=== PATIENT | female | born 1955 | race Caucasian/White ===

== ENCOUNTER 2024-11-08 11:16 | Emergency (ER) | payer OTHER, SELFPAY ==
--- NOTE | ~2024-11-08 | CT_ITS ---
CLINICAL INDICATION: Left flank pain COMPARISON: None. TECHNIQUE: Multiple contiguous axial images of the abdomen and pelvis were performed without the admi nistration of intravenous contrast The dose-length product (DLP) was 280.98 mGy-cm. Automated exposure control and iterative reconstruction technique were employed. FINDINGS/OBSERVATIONS: Visualized lower thorax: 6 mm solid nodule within the left lung base (axial series, image 3) The remainder of the bilateral lung bases are clear The heart is of normal size, without pericardial effusion. Small hiatal hernia is present. Liver: The liver demonstrates homogeneous attenuation and is not enlarged. Gallbladder and biliary system: The gallbladder is surgically absent Pancreas: Limited evaluation of the pancreas secondary to the lack of intravenous contrast. Spleen: The spleen demonstrates homogeneous attenuation and is not enlarged. Kidneys: The bilateral kidneys are unremarkable, without hydronephrosis or renal calculi. Adrenal glands: Unremarkable. Gastrointestinal tract: Diverticulosis is identified within the descending colon with mural thickening and surrounding inflam matory change, findings consistent with acute/early diverticulitis. No gross perforation is identified. No drainable fluid collection is noted. Appendix: The air-filled appendix is of normal caliber (axial series, images 104 through 113) Vasculature: Trace calcified atherosclerotic disease. Lymph nodes: Limited evaluation without intravenous contrast. Pelvic structures: The bladder is decompressed, and otherwise unremarkable. The uterus is anteverted and anteflexed, and otherwise unremarkable. Body wall and musculoskeletal: Small fat-containing umbilical hernia. Heterogeneous appearance of the bone marrow is identified, with significant degenerative disease demo nstrating disc space narrowing, osteophyte formation and vacuum phenomena. IMPRESSION: Findings consistent with acute/early diverticulitis of the descending colon without a drainable fluid collection or gross perforation. Reviewed, dictated and finalized at location A. IMPRESSION: Findings consistent with acute/early diverticulitis of the descending colon wit hout a drainable fluid collection or gross perforation.
[2024-11-08 11:34] VITALS: BP 123/82; PULSE 101; RESP 16; O2SAT 99
[2024-11-08 11:37] VITALS: TEMP 36.8
--- NOTE | 2024-11-08 14:22 | ED_ITS ---
HPI - Abdominal Pain General Chief Complaint: Abdominal Pain Stated Complaint: LLQ abd. pain x3 days Time Seen by Provider: 11/08/24 14:00 Source: patient Mode of arrival: ambulatory Limitations: no limitations History of Present Illness HPI narrative: Patient is a 69 y/o female, with PMH of PMR, who presents to the ED with c/o L flank pain. Patient reports having constant stabbing pain for the 3 days. No significant radiation of pain to abdomen. No history of similar pain. Denies history of kidney stones. Does have history of diverticulosis. Also reports chills last night, urinary frequency for the past few days, diarrhea. Denies dysuria or hematuria. Denies fevers. Denies N/V, rectal bleeding, melena. Related Data Allergies Allergy/AdvReac Type Severity Reaction Status Date / Time erythromycin base Allergy Nausea and Verified 11/08/24 11:37 Vomiting Review of Systems 2 Review of Systems: All systems reviewed & are unremarkable except as noted in HPI. All systems reviewed & are unremarkable except as noted in HPI and below Exam 2 Narrative: GENERAL: Well appearing, well-nourished, non-toxic, in no acute distress. HEAD: Normocephalic, atraumatic. RESPIRATORY: Airway patent, respirations nonlabored. Clear to auscultation bilaterally, no rales, rhonchi, wheezing. CARDIOVASCULAR: Regular rate and rhythm without murmurs, rubs, or gallops. ABDOMINAL: Soft, mild tenderness palpation in left lower quadrant, left mid/lateral abdomen, nondistended. Normoactive BS. MUSCULOSKELETAL: Moves all extremities. No gross deformities. SKIN: Warm, dry, normal color. NEURO: A&O X3. Speech clear. PSYCHIATRIC: Appropriate mood and affect. Normal interaction. Course Vital Signs Vital signs: Vital Signs Pulse Rate 101 H 11/08/24 11:34 Respiratory Rate 16 11/08/24 11:34 Blood Pressure 123/82 11/08/24 11:34 Pulse Oximetry 99 11/08/24 11:34 Temperature 98.3 F 11/08/24 11:37 Pulse Rate 101 H 11/08/24 11:34 Respiratory Rate 16 11/08/24 11:34 Blood Pressure 123/82 11/08/24 11:34 Pulse Oximetry 99 11/08/24 11:34 MDM - Abdominal Pain MDM Narrative Medical decision making narrative: Patient presented to ED with 3 day history of left flank pain. Also reporting urinary frequency, diarrhea. Vital signs are stable upon arrival. Patient afebrile. In no acute distress. Cbc with blood cell count of 12.0. CMP fairly unremarkable. Minimal transaminitis. UA with trace amount of RBC. No signs of infection. CT scan of abdomen/pelvis was obtained: IMPRESSION: Findings consistent with acute/early diverticulitis of the descending colon without a drainable fluid collection or gross perforation. Discussed lab and imaging findings with patient. Feel she is safe for discharge home on oral antibiotics for diverticulitis. Will also send short course of pain medication to pharmacy. Discussed diverticulitis diet. Discussed strict return precautions. Patient in agreement with plan. Feels comfortable discharge home. Discharged in stable condition. Differential Diagnosis Differential diagnosis: Likely abdominal pain, calculus of kidney, constipation, diverticulitis, gastroenteritis and small bowel obstruction Medical Records Attestation: I reviewed the patient's medical records. Lab Data Attestation: I reviewed the patient's lab results. 11/08/24 14:06 11/08/24 14:06 Labs: Lab Results 11/08/24 11/08/24 Range/Units 14:06 14:30 WBC 12.0 H (4.5-10.0) K/mm3 RBC 4.73 (4.2-5.4) M/mm3 Hgb 13.9 (12.0-15.0) g/dL Hct 42.8 (37.0-47.0) % MCV 90.5 (80-100) fl MCH 29.4 (26-34) pg MCHC 32.5 (32-36) g/dl RDW 12.8 (11.5-14.5) % Plt Count 343 (150-375) k/mm3 MPV 8.9 (7.4-10.4) fl Immature Gran % (Auto) 0.4 (0-0.5) % Neut % (Auto) 70.5 (45.5-73.1) % Lymph % (Auto) 17.6 L (18.3-44.2) % [place] % (Auto) 10.5 H (2.6-8.5) % Eos % (Auto) 0.6 (0-4.4) % Baso % (Auto) 0.4 (0.2-1.2) % Lymph # (Auto) 2.12 (0.9-3.2) K/mm3 [place] # (Auto) 1.3 H (0.1-0.6) K/mm3 Eos # (Auto) 0.1 (0-0.3) K/mm3 Baso # (Auto) 0.1 (0.0-0.1) K/mm3 Abs Immat Gran (auto) 0.05 H (0.00-0.031) K/mm3 Absolute Neuts (auto) 8.5 H (1.3-6.7) K/mm3 Absolute Nucleated RBC 0.000 (0.0-0.012) K/mm3 Nucleated RBC % 0.0 (0.0-0.2) % Sodium 136 L (137-145) mmol/L Potassium 4.1 (3.4-5.0) mmol/L Chloride 102 (98-107) mmol/L Carbon Dioxide 23 (22-30) mmol/L Anion Gap 11 (4-12) mmol/L BUN 13 (7-17) mg/dL Creatinine 0.68 L (0.7-1.0) mg/dL Estim Creat Clear Calc 67 ml/min Estimated GFR > 60 (59 - ) Glucose 103 (65-110) mg/dL Lactic Acid 1.1 (0.7-2.0) mmol/L Calcium 9.8 (8.4-10.2) mg/dL Total Bilirubin 0.7 (0.2-1.3) mg/dL AST 39 H (14-36) U/L ALT 47 H (6-35) U/L Alkaline Phosphatase 91 (38-126) U/L Total Protein 8.5 H (6.3-8.2) g/dL Albumin 4.6 (3.5-5.1) g/dL Lipase 58 (23-300) U/L Urine Color Yellow (Yellow) Urine Appearance Clear (Clear) Urine pH 6.0 (5.0-9.0) Ur Specific [place] 1.022 (1.001-1.035) Urine Protein Trace (Negative) mg/dL Urine Glucose (UA) Negative (Negative) mg/dL Urine Ketones Negative (Negative) mg/dL Ur Blood (Man) Negative (Negative) Urine Nitrate Negative (Negative) Urine Bilirubin Negative (Negative) Urine Urobilinogen 1.0 (<2.0) mg/dL Leukocyte Esterase Rfl Trace H (Negative) JAJA/UL Urine RBC 3-5 H (0-2) /hpf Urine WBC 0-5 (0-3) /hpf Ur Squamous Epith Cells None seen (Few) /hpf Urine Bacteria None seen /hpf Urine Casts 0-2 Imaging Data Attestation: I personally reviewed and interpreted this imaging study as follows: Radiologist's impression: ITS Impressions Abdomen/Pelvis CT 11/08/24 15:20 IMPRESSION: Findings consistent with acute/early diverticulitis of the descending colon without a drainable fluid collection or gross perforation. Discharge Plan Discharge Clinical Impression: Diverticulitis of descending colon Patient Disposition: Home Condition: Stable Instructions: Antibiotic Form, Diverticulitis (ED), High Fiber Diet (ED), Diverticulitis Diet (ED) Additional Instructions: Take both antibiotics as prescribed. It is important you finish both courses. Do not drink alcohol while taking Flagyl. Continue Tylenol as needed for pain. Pateros as needed for more severe pain. Recommend low fiber diet while on antibiotics, then increasing fiber supplementation. Follow-up with your primary care doctor for further evaluation. Return to the ED if you experience worsening or severe pain, fevers, unable to keep down food or drink, rectal bleeding, dark black stools, or any other symptoms of concern. Patient Language: Ukrainian Prescriptions: New metronidazole 500 mg tablet 500 mg PO Q8H 7 Days Qty: 21 0RF ciprofloxacin HCl 500 mg tablet 500 mg PO Q12H 7 Days Qty: 14 0RF hydrocodone-acetaminophen 5-325 mg tablet 1 tablet PO Q6H PRN (Reason: pain) Qty: 10 0RF Follow-up/Referrals: PHYSICIAN NOT ON STAFF,NONSTAFF [Non-Staff] - Time of Disposition: 16:12
[2024-11-08 14:27] LABS: Hematocrit 42.8 % (37.0-47.0); Hemoglobin 13.9 g/dL (12.0-15.0); Immature Granulocyte Percent A 0.4 % (0-0.5); Lymphocytes Absolute Auto 2.12 K/mm3 (0.9-3.2); Mean Corpuscular HGB Conc 32.5 g/dl (32-36); Mean Corpuscular Hemoglobin 29.4 pg (26-34); Mean Corpuscular Volume 90.5 fl (80-100); Nucleated Red Blood Cells Absolute Auto 0.000 K/mm3 (0.0-0.012); Nucleated Red Blood Cells Perc 0.0 % (0.0-0.2); Platelet Count Result 343 k/mm3 (150-375); Red Blood Count 4.73 M/mm3 (4.2-5.4); White Blood Count 12.0 K/mm3 (4.5-10.0)
[2024-11-08] MEDS: ACETAMINOPHEN 500 MG TABLET 1000 MG PO (14:28)
[2024-11-08 14:38] LABS: Alanine Aminotransferase 47 U/L (6-35); Albumin Level 4.6 g/dL (3.5-5.1); Alkaline Phosphatase 91 U/L (38-126); Anion Gap 11 mmol/L (4-12); Aspartate Amino Transferase 39 U/L (14-36); Bilirubin,Total 0.7 mg/dL (0.2-1.3); Blood Urea Nitrogen 13 mg/dL (7-17); Calcium 9.8 mg/dL (8.4-10.2); Carbon Dioxide 23 mmol/L (22-30); Chloride 102 mmol/L (98-107); Estimated CRCL calculation 67 ml/min; Estimated Glomerular Filt Rate > 60; Glucose 103 mg/dL (65-110); Lipase 58 U/L (23-300); Potassium 4.1 mmol/L (3.4-5.0); Sodium 136 mmol/L (137-145); Total Protein 8.5 g/dL (6.3-8.2)
--- OUTSIDE RECORDS SUMMARY | 2024-11-08 14:47 | XMS_ITS | Clinical Summary ---
Author Organization [facility] Address [facility] [place] [address] Care Team Providers Care Mentally Impaired Teacher Name Role Phone Pop Chase MD Primary Care Provi cheyanne Carmelita Frazier MD Unavailable [phone] Allergies Active Allergy Reactions Criticality Noted Date Comments Erythromycin Other Nausea only Low 01/01/2022 Narcotic Pain Meds Medications ibuprofen (ADVIL,MOTRIN) 600 mg tablet Take 1 tablet (600 mg total) by mouth every 6 (six) hours as needed for pain (pain) 30 tablet 2 Active venlafaxine XR (EFFEXOR-XR) 75 mg 24 hr capsule TAKE ONE CAPSULES BY MOUTH EVERY DAY 100 capsule 5 Active venlafaxine XR (EFFEXOR-XR) 75 mg 24 hr capsule TAKE 1 CAPSULE BY MOUTH DAILY WITH FOOD 90 capsule 1 5 025 Discontinued Active Problems Problem Noted Date Diagnosed Date Myalgia 11/27/2022 Assessment & Plan (07/05/2024 9:50 AM TORCH HEATER): PMR. Did not tolerate prednisone. Will investigate alternatives such as Actemra. Assessment & Plan (06/03/2024 10:21 AM TORCH HEATER): September 2023 reported notable pain at B shoulders and hips worse overnight and into the morning. She described symptoms suspicious for PMR, however throughout this time she has not had reproducible UE/LE ttp on exam and her inflammatory markers were normal. She was given a course of prednisone and reported ~80% benefit. At last visit noted that throughout the time she had taken prednisone she has had some residual discomfort in her proximal LE in the morning which did not worsened with dose reductions. At last visit, due to ongoing weight gain with prednisone, she was very eager to taper off as soon as possible. She has now been off prednisone for ~1.5 weeks. She does report an increase in pain, though states that it is quite diffuse throughout her body. Today she has ttp isolated to the area of the L greater trochanter. Discussed that there have been inconsistencies with a PMR diagnosis from the beginning; today her description of widespread pain is also inconsistent with PMR. She is certainly averse to consider steroids and, as at last visit, declined a steroid sparing agent such as mtx or Actemra. Suggested that we could try something like gabapentin, though this too she declines. At present she would like to focus on routine low impact exercise such as yoga and dietary change with the goal of weight loss. Discussed plan to have her follow up should symptoms progress or if she decides she would like to pursue additional treatment. Assessment & Plan (04/05/2024 3:10 PM TORCH HEATER): September 2023 reported notable pain at B shoulders and hips worse overnight and into the morning. Was struggling to stand from bed to walk to the bathroom overnight and to raise her arms overhead in the morning. Thus she described symptoms suspicious for PMR, however throughout this time she has not had reproducible UE/LE ttp on exam and her inflammatory markers were normal. She was given a course of prednisone and reported ~80% benefit. She has since been tapering by 1 mg per month and is now down to 6 mg daily; she explains today that throughout the time she has taken prednisone she has had some residual discomfort in her proximal LE in the morning which has not worsened with dose reductions. At this time due to ongoing weight gain with prednisone she is very eager to get off this as soon as possible; this has become her number one priority, stating that she can live with the LE discomfort. Discussed that overall there have been features suggesting PMR but there have also been inconsistencies with this diagnosis. Reviewed that we could consider a steroid sparing agent such as mtx or Actemra should we find worsening with prednisone tapering. At this time will decrease prednisone by 1 mg every 1-2 weeks until off. Plan for follow up in 2 months to reevaluate or sooner as needed. Assessment & Plan (12/07/2023 2:41 PM CDT): At last visit in September reported notable pain at B shoulders and hips which is worse overnight and into the morning. Was struggling to stand from bed to walk to the bathroom overnight and to raise her arms overhead in the morning. Thus some of what she describes sounds suspicious for PMR, though she did not have significant reproducible UE/LE ttp on exam and her inflammatory markers were normal. She was given a course of prednisone and reported profound benefit, tapered from 15 mg daily to 10 mg daily and has remained on this dose since. She had been scheduled to follow up last month but she cancelled this appt. Overall remains stable today without symptoms or exam findings suggestive of PMR. Reviewed need to begin to taper prednisone, particularly due to the risks of long-term steroid use, she is eager to try. Will begin to taper by 1 mg per month starting on 12/09. She will call if she experiences a flare with dose reduction. Recheck labs today as below. Plan for follow up in 3-4 months to reevaluate or sooner as needed. Assessment & Plan (09/15/2023 3:04 PM CDT): Returns today due to worsening of pain over the last 2-3 weeks. While she reports diffuse pain affecting joints more than muscles, she does report notable pain at B shoulders and hips which is worse overnight and into the morning. Finds that she struggles to stand from bed to walk to the bathroom overnight and to raise her arms overhead in the morning. Thus some of what she describes sounds suspicious for PMR, though she does not have significant reproducible UE/LE ttp on exam. Her prior workup has been unremarkable for inflammatory arthritis. At this time recommend rechecking labs as below and trial prednisone 15 mg daily x7d. If she has a dramatic benefit (at least 90%) then will treat with prednisone taper for PMR. Due to difficulty getting out of her car and walking, handicap parking given. Plan for follow up in 6 weeks and she will call with update after the course of prednisone. Assessment & Plan (06/15/2023 10:21 AM TORCH HEATER): As above Assessment & Plan (11/27/2022 3:26 PM CDT): For her low back and hip pain, recommend a trial of aquatic exercises and monitor response. 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 Hand xrays were negative and a R hand/wrist US did not show significant active inflammation. Returns today largely unchanged from prior, she describes a sensation of widespread body pain and stiffness. Today notes that she believes her symptoms stem more from her muscles than from her joints. Her exam reveals a few tender joints and tender points, no synovitis. Overall there has not been evidence to substantiate any active rheumatologic diagnosis. Given her benefit with Aleve, would continue this and monitor. Will recheck labs today as below. Plan for follow up in 6 months to reassess or sooner as needed. Assessment & Plan (12/15/2022 10:58 AM CDT): 67yoF presents for evaluation due to joint/muscle pain and ARMANDO 1:320. Her symptoms began 4 months ago. Her greatest complains have been her L hip, low back, and hands with stiffness that is persistent throughout the day. A course of prednisone offered modest benefit, she otherwise has tried only 200 mg ibuprofen on one occasion. 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 +FH of RA. Our workup shows an isolated ARMANDO but with a high titer of 1:1280, her HLA B27 was negative. 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 Hand xrays were negative and a R hand/wrist US did not show significant active inflammation. Overall there is not evidence at this time to substantiate any active rheumatologic diagnosis. Given her benefit with Aleve, would continue this and monitor. Plan for follow up in 6 months to reassess or sooner as needed. Assessment & Plan (11/27/2022 10:20 AM CDT): 67yoF presents for evaluation due to joint/muscle pain and ARMANDO 1:320. Her symptoms began 4 months ago. Her greatest complains have been her L hip, low back, and hands with stiffness that is persistent throughout the day. A course of prednisone offered modest benefit, she otherwise has tried only 200 mg ibuprofen on one occasion. 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 +FH of RA. By exam today she has a few tender PIP joints in her hands with questionable synovitis. Overall there are some features in her history, exam, and/or prior workup that do suggest possible underlying rheumatologic diagnosis. To further evaluate will check labs and imaging as below with plan for follow up in 2 weeks to review results or sooner as needed. Pain of pelvic girdle 10/09/2022 Assessment & Plan (10/09/2022 7:45 AM CDT): Labs to r/o or rule in PMR Start prednisone 20 mg daily Depressive disorder 10/08/2022 10/08/2022 Elevated liver enzymes 10/08/2022 3 Establishing care with new doctor, encounter for 01/01/2022 Routine general medical exam ination at a health care facility 04/22/2019 Assessment & Plan (07/05/2024 9:45 AM TORCH HEATER): Health maintenance objectives reviewed in orders placed for any outstanding screening if indicated. Physical exam performed as above. Assessment & Plan (06/09/2023 9:28 AM TORCH HEATER): Health maintenance objectives reviewed in orders placed for any outstanding screening if indicated. Physical exam performed as above. Pure hypercholesterolemia 03/26/2018 Overview (03/26/2018): Due to overweight Assessment & Plan (01/01/2022 2:43 PM CDT): TC: HDL 3.3 10/2021. ASCVD: 5.4% No statin medication indicated Continue lifestyle optimization. She has made significant progress with weight loss over the past year. Assessment & Plan (03/26/2018 9:32 AM TORCH HEATER): Lipid abnormalities are worsening. Nutritional counseling was provided. Lipids will be reassessed in 3 months. Class 1 obesity due to exces s calories without serious comorbidity with body mass index (BMI) of 30.0 to 30.9 in adult 03/26/2018 Overview (03/26/2018): Is suffering HLD as a consequence Assessment & Plan (07/01/2024 3:54 PM TORCH HEATER): BMI Follow-up includes: nutrition counseling, exercise counseling, and education provided. Assessment & Plan (06/09/2023 9:26 AM TORCH HEATER): BMI Follow-up includes: nutrition counseling, exercise counseling, and education provided. Assessment & Plan (10/08/2022 3:53 PM CDT): BMI Follow-up includes: nutrition counseling, exercise counseling and education provided. Assessment & Plan (01/01/2022 2:20 PM CDT): BMI Follow-up includes: nutrition counseling, exercise counseling and education provided. Assessment & Plan (03/26/2018 9:35 AM TORCH HEATER): Obesity is worsening. Discussed the patient's BMI. The BMI is above average; BMI management plan is completed. We discussed the saxenda and with other risks it is indicated Return for weight every 6 weeks to ensure effective weight loss Anxiety disorder 01/07/2016 Assessment & Plan (01/01/2022 2:47 PM CDT): Debilitating anxiety ensued after the untimely passing of her son 7 years ago. She has been on venlafaxine since that time. 2 years ago, she discontinued this medication but was meet with significant emotional distress. Stephany would like to get off of this medication. We discussed that with her previous experience this is not advisable. She expressed understanding. Will increase back to 75mg and continue uninterrupted. Resolved Problems Problem Noted Date Diagnosed Date Resolved Date Acute left-sided low back pa in without sciatica 06/01/2020 10/21/2021 Assessment & Plan (06/01/2020 4:57 PM TORCH HEATER): Get film Medrol dose pack PT Right anterior knee pain 03/26/2018 Assessment & Plan (07/08/2018 3:11 PM TORCH HEATER): I am recommendeing a course of PT and if no better or worse to see ortho the knee exam is very benign Assessment & Plan (03/26/2018 9:36 AM TORCH HEATER): xray Encounters Date Type Department Care Team Description 11/08/2024 Nurse Triage [facility] [address] [place] [address] [place] [phone] Pop Chase MD from Last 3 Months Immunizations Immunization Administration Dates Next Due Influenza, Quad, Adjuvantate d, Intramuscular 04/04/2023,03/03/2022,02/15/2020 Influenza, Quadrivalent, Hig h Dose, Preservative Free, Intrr 03/01/2021 Influenza, Quadrivalent, Spl it, Intramuscular 02/08/2018 Influenza, Trivalent, Adjuva nted, Intramuscular 03/10/2019 Influenza, Trivalent, High D ose, Split, Preservative Free, Intramuscular 03/02/2017 Influenza, Unspecified 02/09/2024 Abiola (J&J) SARS-CoV-2 Vaccination 11/08/2020 Pneumococcal Conjugate PCV 13 04/22/2019 Pneumococcal Polysaccharide PPV23 10/22/2021 Sars-CoV-2, Unspecified 07/05/2024(Deferred: Pat ient Refused) Tdap 05/12/2020 ZOSTER Recombinant 07/05/2024(Deferred: Patient Refused) Surgical History Surgery Date Site/Laterality Comments CHOLECYSTECTOMY 05/11/2020 - 05/10/2021 SECTION 1975,1976,1986 Medical History Medical History Date Comments Acute left-sided low back pain without sciatica 06/01/2020 Right anterior knee pain 03/26/2018 Anxiety disorder 01/07/2016 Depression Hypercholesterolemia Family History Medical History Relation Name Comments No Known Problems Brother Lung cancer Father No Known Problems Maternal Grandfather No Known Problems Maternal Grandmother No Known Problems Mother no known h ealth issues No Known Problems Paternal Grandfather No Known Problems Paternal Grandmother No Known Problems Sister Suicidality Son Family history of suicide - (Added by TW Conv) Relation Name Status Comments Brother Alive Father Maternal Grandfather Maternal Grandmother Mother Alive Paternal Grandfather Paternal Grandmother Sister Alive Son Social History Tobacco Use Types Packs/Day Years Used Date Smoking Tobacco: Never Passive Smoke Exposure: Never Smokeless Tobacco: Never Tobacco Cessation:Counseling Given: Yes AUDIT-C Answer Date Recorded Q1: How often do you have a drink containing alc ohol? Monthly or less 10/09/2022 Q2: How many drinks containi ng alcohol do you have on a typical day when you are drinking? 1 or 2 10/09/2022 Q3: How often do you have si x or more drinks on one occasion? Less than monthly 10/09/2022 PHQ-2 Answer Date Recorded PHQ-2 Total Score (If total score is 3 or more points, staff should administer the PHQ-9) 0 07/05/2024 Exercise Vital Sign Answer Date Recorde d On average, how many days pe r week do you engage in moderate to strenuous exercise (like a brisk walk)? 3 days Minutes of Exercise per Session Not on file 01/01/2022 Comments No Sex and Gender Information Value Date Recorded Sex Assigned at Not on file Legal Sex Female 11:00 AM TORCH HEATER Gender Identity Female 03/26/2018 9:09 AM TORCH HEATER Sexual Orientation Straight 03/01/2021 12 :16 PM CDT Obstetrics History Para Term AB IAB SAB Ectopic Multiple Livin g Live Births 3 3 3 3 Date Outcome GA Total Labor Labor//3rd Weight Sex Type Anes PTL Ellen A1 A5 Name Clin Term Term Term Last Filed Vital Signs Vital Sign Reading Time Taken Comments Blood Pressure 120/68 07/05/2024 9:39 AM TORCH HEATER Pulse 97 07/05/2024 9:39 AM TORCH HEATER Temperature 36.7 C (98.1 F) 07/20/2023 1:26 PM CDT Respiratory Rate 18 07/20/2023 1:26 PM CDT Oxygen Saturation 96% 07/05/2024 9:39 AM TORCH HEATER Inhaled Oxygen Concentration - - Weight 83 kg (183 lb) 07/05/2024 9:39 AM TORCH HEATER Height 165.1 cm (5' 5) 07/05/2024 9:39 AM TORCH HEATER Body Mass Index 30.45 07/05/2024 9:39 AM TORCH HEATER Plan of Treatment Health Maintenance Due Date Last Done Comments Hepatitis B Screening 08[birth year]13/1973 Osteoporosis Screening-Bone Density Scan 11/13/2023 11/12/2021, 04/22/2014 Influenza Vaccine (#1) 2025 , 04/04/2023, 03/03/2022, Additional history exists Covid-19 Vaccine () 07/01/2025 04/10/2021, 11/08/2020, 07/12/2020 Postponed from 01/10/2024 (Patient declined, but will receive in the future) Zoster Vaccine (1 of 2) 07/01/2025 Post poned from 08/13/2003 (Patient declined, but will receive in the future) Depression Screening 07/05/2025 07/05/2024, 06/09/2023, 10/09/2022, Additional history exists Fall Risk Assessment 07/05/2025 07/05/2024, 06/09/2023, 10/09/2022, Additional history exists Well Visit 65+ 07/05/2025 07/05/2024, 05/13, 10/21/2021, Additional history exists Breast Cancer Screening-Mammogram 07/11/2025 07/11/2024, 06/23/2023, 02/26/2021, Additional history exists Colon Cancer Screening-DNA Stool 07/28/2026 07/29/2023, 04/10/2019, 04/22/2008 DTaP/Tdap/Td Vaccine (2 - Td or Tdap) 05/12/2030 05/12/2020 Colon Cancer Screening-CT Colonography Discontinued 04/22/2008 Colon Cancer Screening-Colonoscopy Discontinued 04/22/2008 Colon Cancer Screening-Sigmoidoscopy Discontinued 04/22/2008 Hepatitis C Screening Completed 04/22/2019 Pneumococcal vaccine 65+ Completed 10/22/2021, 04/10 Colon Cancer Screening-FIT Discontinued 07/28, 04/10/2019, 04/22/2008 Procedures Procedure Name Priority Date/Time Associated Diagnosis Comments DIAGNOSTIC MAMMOGRAM BILATERAL W MINA Schedule Routine, Read Routine (OP Routine) 07/11/2024 2:28 PM TORCH HEATER Nipple discharge Mass of axillary tail of right breast STOOL DNA COLOGUARD Routine 07/29/2023 8:45 AM CDT Colon cancer screening DEXA AXIAL SKELETON BONE DENSITY 1 OR MORE SITES Schedule Routine, Read Routine (OP Routine) 11/12/2021 9:34 AM CDT Menopausal and perimenopausal disorder HEPATITIS C AB W/REFL TO HCV RNA, QN, PCR (REFL) Routine 04/22/2019 12:14 PM TORCH HEATER Routine general medical examination at a health care facility HM COLONOSCOPY Routine 04/22/2008 from Last 3 Months or Most Recently Relevant to Health Maintenance Results * Diagnostic Mammogram Bilateral W Mina (07/11/2024 2:28 PM TORCH HEATER) Anatomical Region Laterality Modality Breast Bilateral Mammography 07/11/2024 3:05 PM TORCH HEATER Impressions 07/11/2024 3:05 PM TORCH HEATER Overall final assessment: BI-RADS Category 2: Benign No mammographic or sonographic evidence of malignancy. Electronically signed by: Rena Otto M.D. Narrative 07/11/2024 3:05 PM TORCH HEATER EXAM: Bilateral 3-D tomosynthesis diagnostic mammogram, limited right breast ultrasound, left axillary ultrasound HISTORY: Palpable lumps in both axillary regions. One year history of right nipple discharge with previous negative right breast ultrasound. COMPARISON: Prior mammograms and ultrasounds FINDINGS: Bilateral 3-D tomosynthesis diagnostic mammogram and left axillary and right breast ultrasounds were performed. TISSUE DENSITY:There are scattered areas of fibroglandular density. There is slightly increased conspicuity of asymmetry in the anterior right breast at 9:00, 8 mm. There is no other new mass or distortion in either breast. There is no suspicious calcification. Sonography of the anterior outer right breast was performed. At 8:30 at 1 cm from the nipple there is an island of fibrocystic tissue corresponding to the asymmetry on mammography. There is no ductal dilatation. There are normal fatty replaced right axillary lymph nodes in the area of palpable nodule. Sonography of the left axilla at site of palpable nodule shows normal fibrofatty breast elements and fatty replaced axillary lymph nodes. Clinical follow-up for bilateral nodules is recommended. Unless a new clinical problem arises, annual screening mammography is recommended. These results were conveyed to the patient at the time of the study. us Carmelita Frazier MD IMG MAMMO PROCEDURES Fi nal Result * Stool DNA - Cologuard (07/29/2023 8:45 AM CDT) Stool DNA - Cologuard Negative Negative [employer] (CLIA #:[id number]) Comment: NEGATIVE TEST RESULT. A negative Cologuard result indicates a low likelihood that a colorectal cancer (CRC) or advanced adenoma (adenomatous polyps with more advanced pre-malignant features) is present. The chance that a person with a negative Cologuard test has a colorectal cancer is less than 1 in 1500 (negative predictive value >99.9%) or has an advanced adenoma is less than 5.3% (negative predictive value 94.7%). These data are based on a prospective cross-sectional study of 10,000 individuals at average risk for colorectal cancer who were screened with both Cologuard and colonoscopy. (Jass Melo al, N Engl J Med 2014;370(14):5731-3096) The normal value (reference range) for this assay is negative. COLOGUARD RE-SCREENING RECOMMENDATION: Periodic colorectal cancer screening is an important part of preventive healthcare for asymptomatic individuals at average risk for colorectal cancer. Following a negative Cologuard result, the [place] [employer] and U.S. Multi-Society Task Force screening guidelines recommend a Cologuard re-screening interval of 3 years. References: [place] [employer] Guideline for Colorectal Cancer Screening: https://www.cancer.org/cancer/zefmp-lwjsyd-wfcowq/vlnsncrlj-mgulrlepo-qqpmpmr/ac s-rec ommendations.html.; Titi KENNEDY, Tulio RIOS, Jack BarreraK, Colorectal Cancer Screening: Recommendations for Physicians and Patients from the U.S. Multi-Society Task Force on Colorectal Cancer Screening , Am J Gastroenterology 2017; 112:6732-8391. TEST DESCRIPTION: Composite algorithmic analysis of stool DNA-biomarkers with hemoglobin immunoassay. Quantitative values of individual biomarkers are not reportable and are not associated with individual biomarker result reference ranges. Cologuard is intended for colorectal cancer screening of adults of either sex, 45 years or older, who are at average-risk for colorectal cancer (CRC). Cologuard has been approved for use by the U.S. FDA. The performance of Cologuard was established in a cross sectional study of average-risk adults aged 50-84. Cologuard performance in patients ages 45 to 49 years was estimated by sub-group analysis of near-age groups. Colonoscopies performed for a positive result may find as the most clinically significant lesion: colorectal cancer [4.0%], advanced adenoma (including sessile serrated polyps greater than or equal to 1cm diameter) [20%] or non- advanced adenoma [31%]; or no colorectal neoplasia [45%]. These estimates are derived from a prospective cross-sectional screening study of 10,000 individuals at average risk for colorectal cancer who were screened with both Cologuard and colonoscopy. (Jass Melo al, N Engl J Med 2014;370(14):8555-5188.) Cologuard may produce a false negative or false positive result (no colorectal cancer or precancerous polyp present at colonoscopy follow up). A negative Cologuard test result does not guarantee the absence of CRC or advanced adenoma (pre-cancer). The current Cologuard screening interval is every 3 years. ([place] [employer] and U.S. Multi-Society Task Force). Cologuard performance data in a 10,000 patient pivotal study using colonoscopy as the reference method can be accessed at the following location: www.[employer]/results. Additional description of the Cologuard test process, warnings and precautions can be found at www.[employer]. Stool 07/29/2023 8:45 AM CDT 07/30/2023 8:22 AM CDT Pop Chase MD LAB BODY FLUIDS AND STOOLS ORDERABLES Final Result [employer] (CLIA #:[id number]) [address] [place] [address] * Dexa Axial Skeleton Bone Density 1 or 2 Site (11/12/2021 9:34 AM CDT) Anatomical Region Laterality Modality Body N/A Digital Radiogra phy 11/12/2021 9:54 AM CDT Impressions 11/12/2021 4:00 PM CDT 1. The bone mineral density of the lumbar spine is normal. 2. The bone mineral density of the left femoral neck is normal. 3. The bone mineral density of the left total hip is normal. 4. Overall, the above findings are normal by WHO criteria. 5. Calculation of fracture risk using the FRAX model is not appropriate in certain settings. It was not performed in this patient because the patient met the following condition(s): normal bone density. General comments regarding interpretation of bone density measurements: A) In children, premenopausal woman and males under age 50 not at increased risk for fractures only Z-scores, not T-scores are used to indicate risk. A Z-score above -2.0 is defined as within the expected range for age and Z-score at or less than -2.0 is below the expected range for age. A Z-score below the expected range for age in a patient with recent fractures and/or chronic corticosteroid treatment is consistent with a diagnosis of osteoporosis. B) In post menopausal women and males over 50, comparison of the measured bone mineral density with the average value in young normal subjects (the T-score) has been found to be useful in assessing fracture risk. Fracture risk approximately doubles for each 1.0 standard deviation (SD) in individual's hip or spine bone mineral density is below the average value of young normal subjects. The World Health Organization (WHO) has defined T-scores of -1.0 to -2.5 as diagnostic of low bone mass (OSTEOPENIA), and T-scores of -2.5 or lower to be diagnostic of OSTEOPOROSIS, based on the site of lowest bone density. Note that there will be a change in reporting format and reference databases as patients move from the younger population (group A) to the older population (group B) The National Osteoporosis Foundation (www.nof.org) recommends adequate intake of calcium and vitamin D and regular weight-bearing exercise in all patients. They recommend pharmacologic treatment in postmenopausal women and men age 50 and older presenting with any of the followin) Osteoporosis, after appropriate evaluation to exclude secondary causes. 2) A hip or vertebral (clinical or radiographic) fracture, regardless of the bone density. 3) Low bone mass (Osteopenia) and one or more of: other prior fractures, secondary causes associated with high risk of fracture (such as glucocorticoid use or total immobilization), or computed high risk of fracture (10-yr probability of hip fracture >= 3% or a 10-yr probability of any major osteoporosis-related fracture >= 20% based on the [place].-adapted WHO algorithm), available at http://www.shef.ac.uk/FRAX). Dictated by: Verena Shetty M.D. The radiology attending physician has personally reviewed this study, and had reviewed and/or edited this written report and agrees with it. Electronically signed by: Shirley Cardoso M.D. Narrative 11/12/2021 4:00 PM CDT BONE DENSITOMETRY OF THE SPINE AND HIP DATE OF STUDY: 11/12/2021 HISTORY: 66-year-old postmenopausal woman undergoing bone mineral density screening. She is being treated with intermittent calcium supplementation, no supplementation within the last 24 hours. She is not taking vitamin D supplementation/therapy. Evaluate bone mineral density. Additional risk factors for fracture: None FINDINGS (SPINE): The bone mineral density of L1-L4 was assessed by dual-energy x-ray absorptiometry. The average bone mineral density within this region is 1.155 gm/sq-cm. This is 3.0 standard deviations above the mean of the average bone mineral density for age- and gender-matched subjects (the Z-score). It is 1.0 standard deviations above the mean peak bone mineral density in young adults (the T-score). FINDINGS (FEMORAL NECK): The bone mineral density of the left femoral neck was assessed by dual-energy x-ray absorptiometry. The average bone mineral density within the femoral neck region is 0.782 gm/sq-cm. This is 1.1 standard deviations above the mean of the average bone mineral density for age- and gender-matched subjects (the Z-score). It is 0.6 standard deviations below the mean peak bone mineral density in young adults (the T-score). FINDINGS (TOTAL HIP): The bone mineral density of the left hip was assessed by dual-energy x-ray absorptiometry. The average bone mineral density within the total hip region is 0.964 gm/sq-cm. This is 1.6 standard deviations above the mean of the average bone mineral density for age- and gender-matched subjects (the Z-score). It is 0.2 standard deviations above the mean peak bone mineral density in young adults (the T-score). SUMMARY OF CURRENT RESULTS: Region BMD T-score Z-score AP Spine (L1-L4) 1.155 1.0 3.0 Femoral Neck (Left) 0.782 -0.6 1.1 Total Hip (Left) 0.964 0.2 1.6 Procedure Note Shirley Cardoso MD - 11/12/2021 BONE DENSITOMETRY OF THE SPINE AND HIP DATE OF STUDY: 11/12/2021 HISTORY: 66-year-old postmenopausal woman undergoing bone mineral density screening. She is being treated with intermittent calcium supplementation, no supplementation within the last 24 hours. She is not taking vitamin D supplementation/therapy. Evaluate bone mineral density. Additional risk factors for fracture: None FINDINGS (SPINE): The bone mineral density of L1-L4 was assessed by dual-energy x-ray absorptiometry. The average bone mineral density within this region is 1.155 gm/sq-cm. This is 3.0 standard deviations above the mean of the average bone mineral density for age- and gender-matched subjects (the Z-score). It is 1.0 standard deviations above the mean peak bone mineral density in young adults (the T-score). FINDINGS (FEMORAL NECK): The bone mineral density of the left femoral neck was assessed by dual-energy x-ray absorptiometry. The average bone mineral density within the femoral neck region is 0.782 gm/sq-cm. This is 1.1 standard deviations above the mean of the average bone mineral density for age- and gender-matched subjects (the Z-score). It is 0.6 standard deviations below the mean peak bone mineral density in young adults (the T-score). FINDINGS (TOTAL HIP): The bone mineral density of the left hip was assessed by dual-energy x-ray absorptiometry. The average bone mineral density within the total hip region is 0.964 gm/sq-cm. This is 1.6 standard deviations above the mean of the average bone mineral density for age- and gender-matched subjects (the Z-score). It is 0.2 standard deviations above the mean peak bone mineral density in young adults (the T-score). SUMMARY OF CURRENT RESULTS: Region BMD T-score Z-score AP Spine (L1-L4) 1.155 1.0 3.0 Femoral Neck (Left) 0.782 -0.6 1.1 Total Hip (Left) 0.964 0.2 1.6 IMPRESSION: 1. The bone mineral density of the lumbar spine is normal. 2. The bone mineral density of the left femoral neck is normal. 3. The bone mineral density of the left total hip is normal. 4. Overall, the above findings are normal by WHO criteria. 5. Calculation of fracture risk using the FRAX model is not appropriate in certain settings. It was not performed in this patient because the patient met the following condition(s): normal bone density. General comments regarding interpretation of bone density measurements: A) In children, premenopausal woman and males under age 50 not at increased risk for fractures only Z-scores, not T-scores are used to indicate risk. A Z-score above -2.0 is defined as within the expected range for age and Z-score at or less than -2.0 is below the expected range for age. A Z-score below the expected range for age in a patient with recent fractures and/or chronic corticosteroid treatment is consistent with a diagnosis of osteoporosis. B) In post menopausal women and males over 50, comparison of the measured bone mineral density with the average value in young normal subjects (the T-score) has been found to be useful in assessing fracture risk. Fracture risk approximately doubles for each 1.0 standard deviation (SD) in individual's hip or spine bone mineral density is below the average value of young normal subjects. The World Health Organization (WHO) has defined T-scores of -1.0 to -2.5 as diagnostic of low bone mass (OSTEOPENIA), and T-scores of -2.5 or lower to be diagnostic of OSTEOPOROSIS, based on the site of lowest bone density. Note that there will be a change in reporting format and reference databases as patients move from the younger population (group A) to the older population (group B) The National Osteoporosis Foundation (www.nof.org) recommends adequate intake of calcium and vitamin D and regular weight-bearing exercise in all patients. They recommend pharmacologic treatment in postmenopausal women and men age 50 and older presenting with any of the followin) Osteoporosis, after appropriate evaluation to exclude secondary causes. 2) A hip or vertebral (clinical or radiographic) fracture, regardless of the bone density. 3) Low bone mass (Osteopenia) and one or more of: other prior fractures, secondary causes associated with high risk of fracture (such as glucocorticoid use or total immobilization), or computed high risk of fracture (10-yr probability of hip fracture >= 3% or a 10-yr probability of any major osteoporosis-related fracture >= 20% based on the [place].-adapted WHO algorithm), available at http://www.shef.ac.uk/FRAX). Dictated by: Verena Shetty M.D. The radiology attending physician has personally reviewed this study, and had reviewed and/or edited this written report and agrees with it. Electronically signed by: Shirley Cardoso M.D. Martin Givens MD [facility] [place] Final R esult * HEPATITIS C AB W/REFL TO HCV RNA, QN, PCR (REFL) (04/22/2019 12:14 PM TORCH HEATER) Hep C Ab NON-REACT KIM NON-REACT [facility] [place] Comment: Our records indicate that you have ordered a client custom reflex order code. Only the initial test was performed because we do not have a client custom reflex testing authorization request form on file for you. Please contact a client success director if you would like additional testing done on this patient or contact your telesales supervisor to obtain a client custom reflex testing authorization request form. SIGNAL TO CUT-OFF 0.01 <1.00 [facility] [place] Comment: HCV antibody was non-reactive. There is no laboratory evidence of HCV infection. In most cases, no further action is required. However, if recent HCV exposure is suspected, a test for HCV RNA (test code 93735) is suggested. For additional information please refer to http://education.[employer]/faq/YUA48j9 (This link is being provided for informational/ educational purposes only.) BLD 04/22/2019 12:1 4 PM TORCH HEATER 04/23/2019 6:19 AM TORCH HEATER Narrative Resulting Agency Comment Performing Organization Information: Site ID: [id number] Name: Cammie Sherman Address: [address] [facility] [place] [address] Director: Markel Pope D.O., ACE Alexys Weiss MD LAB BLOOD ORDERABLES Final Res ult [facility] [place], [place] * COLONOSCOPY (04/22/2008) HM Colonoscopy Normal Historical Provider HEALTH MAINTENANCE Final Result from Last 3 Months or Most Recently Relevant to Health Maintenance [facility] PPO [facility] PPO MEDICARE [employer] [place] PPO [employer] [place] [employer] [place] Advance Directives For more information, please contact: [phone] * Full Code (Latest Code Status on File) Date Activated Date Inactivated Comments 03/11/2022 9:41 AM 03/11/2022 2:25 PM Care Teams Mentally Impaired Teacher Relationship Specialty Start Date End Date Pop Chase MD PCP - General Internal Medicine 01/01/22 Carmelita Frazier MD [address] [facility] [address] [place] [address] Consulting Physician Obstetrics and Gynecology 03/11/22
--- OUTSIDE RECORDS SUMMARY | 2024-11-08 14:47 | XMS_ITS | Encounter Summary ---
Author Organization [facility] Address [address] [place] [address] Care Team Providers Care Cook Chili Name Role Phone Pop Chase MD Primary Care Provi cheyanne Carmelita Frazier MD Unavailable [phone] Reason for Visit * Reason Onset Date Comments Abdominal Pain 11/08/2024 Encounter Details Date Type Department Care Team (Late st Contact Info) Description 11/08/2024 Nurse Triage [facility] [address] [facility] [address] [place] [address] Pop Chase MD [address] [facility] [address] [place] [address] Social History Tobacco Use Types Packs/Day Years Used Date Smoking Tobacco: Never Passive Smoke Exposure: Never Smokeless Tobacco: Never AUDIT-C Answer Date Recorded Q1: How often [...] on file Legal Sex Female 11:00 AM COMMUNITY ENGAGEMENT SPECIALIST Gender Identity Female 03/26/2018 9:09 AM COMMUNITY ENGAGEMENT SPECIALIST Sexual Orientation Straight 03/01/2021 12 :16 PM CDT documented as of this encounter Miscellaneous Notes * Telephone Encounter - Radha Gonzalez MA - 11/08/2024 11:44 AM CDT FYI- spoke to pt, she is currently @ ED * Telephone Encounter - Taylor Sears RN - 11/08/2024 10:57 AM CDT Reason for Conversation Abdominal Pain Background X3 days of abd pain at left side in waistline, below ribs on side of body. No back pain. Constant pain except can get pain to subside with rest but if moves or takes breath has pain. No chest pain. Pt is having nocturia. No pain with urination, blood, no fever but had chills last night that have subsided. Rates pain 7-8/10. RN advised ED now per dispo, pt states she will go to closest ED which [facility]. RN routing KEL to clinical pool. Disposition Go to ED Now Reason for Disposition SEVERE pain (e.g., excruciating, scale 8-10) and present > 1 hour Protocols Used Flank [id number] * Telephone Encounter - Taylor Sears RN - 11/08/2024 10:56 AM CDT Regarding: severe abdominal pain ----- Message from Sarah Julian sent at 11/08/2024 10:52 AM CDT ----- Symptom Based Call Chief Complaint(s): severe abdominal pain Duration: 3 days What type of symptom(s) is the patient experiencing? Red Flag. Is the patient concerned they are experiencing a medical emergency requiring an ambulance? No Additional Comments: Patient is have severe to moderate stabbing pain on her left side at the waist. Patient said the pain is moderate to severe and is constant. Does message need to be routed? Yes-Action Needed documented in this encounter Plan of Treatment Not on file documented as of this encounter Visit Diagnoses Not on filedocumented in this encounter Care Teams Cook Chili Relationship Specialty Start Date End Date Pop Chase MD PCP - General Internal Medicine 01/01/22 Carmelita Frazier MD [address] [facility] [address] [place] [address] Consulting Physician Obstetrics and Gynecology 03/11/22 documented as of this encounter
--- OUTSIDE RECORDS SUMMARY | 2024-11-08 14:47 | XMS_ITS | Referral Summary ---
Author Organization [facility] Address [address] [place] [address] Care Team Providers Care Sagger Maker Name Role Phone Pop Chase MD Primary Care Provi cheyanne Carmelita Frazier MD Unavailable [phone] Encounters Date Type Department Care Team Description 11/08/2024 Nurse Triage [facility] [address] [place] [address] [address] [place] [address] Pop Chase MD from Last 3 Months Allergies Active Allergy Reactions Criticality Noted Date [...] 11/27/2022 Assessment & Plan (07/05/2024 9:50 AM MATERIALS PLANNING MANAGER): PMR. Did not tolerate prednisone. Will investigate alternatives such as Actemra. Assessment & Plan (06/03/2024 10:21 AM MATERIALS PLANNING MANAGER): September 2023 reported notable pain at B [...] treatment. Assessment & Plan (04/05/2024 3:10 PM MATERIALS PLANNING MANAGER): September 2023 reported notable pain at B [...] prednisone. Assessment & Plan (06/15/2023 10:21 AM MATERIALS PLANNING MANAGER): As above Assessment & Plan (11/27/2022 3:26 PM CDT): For her low back and hip pain, recommend a trial of aquatic exercises and monitor response. Positive ARMANDO (antinuclear antibody) 11/25/2022 Overview (09/15/2023): Labs 06/15/2023 AVISE: ARMANDO by JOSE only (92), ds DNA by BLANE but negative by JOSE 11/27/2022 ARMANDO 1:1280 cytoplasmic, dsDNA neg, Sm neg, Sm/DANCE ENTERTAINER neg, Scl-70 neg, SSA/B neg HLA-B27 negative [...] PIPJ Assessment & Plan (06/15/2023 10:21 AM MATERIALS PLANNING MANAGER): Our workup showed an isolated ARMANDO but [...] disorder 10/08/2022 10/08/2022 Elevated liver enzymes 10/08/2022 Establishing care with new doctor, encounter for 01/01/2022 Routine general medical exam ination at a health care facility 04/22/2019 Assessment & Plan (07/05/2024 9:45 AM MATERIALS PLANNING MANAGER): Health maintenance objectives reviewed in orders placed for any outstanding screening if indicated. Physical exam performed as above. Assessment & Plan (06/09/2023 9:28 AM MATERIALS PLANNING MANAGER): Health maintenance objectives reviewed in orders placed [...] year. Assessment & Plan (03/26/2018 9:32 AM MATERIALS PLANNING MANAGER): Lipid abnormalities are worsening. Nutritional counseling was provided. Lipids will be reassessed in 3 months. Class 1 obesity due to exces s calories without serious comorbidity with body mass index (BMI) of 30.0 to 30.9 in adult 03/26/2018 Overview (03/26/2018): Is suffering HLD as a consequence Assessment & Plan (07/01/2024 3:54 PM MATERIALS PLANNING MANAGER): BMI Follow-up includes: nutrition counseling, exercise counseling, and education provided. Assessment & Plan (06/09/2023 9:26 AM MATERIALS PLANNING MANAGER): BMI Follow-up includes: nutrition counseling, exercise counseling, and education provided. Assessment & Plan (10/08/2022 3:53 PM CDT): BMI Follow-up includes: nutrition counseling, exercise counseling and education provided. Assessment & Plan (01/01/2022 2:20 PM CDT): BMI Follow-up includes: nutrition counseling, exercise counseling and education provided. Assessment & Plan (03/26/2018 9:35 AM MATERIALS PLANNING MANAGER): Obesity is worsening. Discussed the patient's BMI. [...] 10/21/2021 Assessment & Plan (06/01/2020 4:57 PM MATERIALS PLANNING MANAGER): Get film Medrol dose pack PT Right anterior knee pain 03/26/2018 Assessment & Plan (07/08/2018 3:11 PM MATERIALS PLANNING MANAGER): I am recommendeing a course of PT and if no better or worse to see ortho the knee exam is very benign Assessment & Plan (03/26/2018 9:36 AM MATERIALS PLANNING MANAGER): xray Immunizations Immunization Administration Dates Next Due Influenza, [...] Tdap 05/12/2020 ZOSTER Recombinant 07/05/2024(Deferred: Patient Refused) Social History Tobacco Use Types Packs/Day Years [...] on file Legal Sex Female 11:00 AM MATERIALS PLANNING MANAGER Gender Identity Female 03/26/2018 9:09 AM MATERIALS PLANNING MANAGER Sexual Orientation Straight 03/01/2021 12 :16 PM CDT Last Filed Vital Signs Vital Sign Reading Time Taken Comments Blood Pressure 120/68 07/05/2024 9:39 AM MATERIALS PLANNING MANAGER Pulse 97 07/05/2024 9:39 AM MATERIALS PLANNING MANAGER Temperature 36.7 C (98.1 F) 07/20/2023 1:26 PM CDT Respiratory Rate 18 07/20/2023 1:26 PM CDT Oxygen Saturation 96% 07/05/2024 9:39 AM MATERIALS PLANNING MANAGER Inhaled Oxygen Concentration - - Weight 83 kg (183 lb) 07/05/2024 9:39 AM MATERIALS PLANNING MANAGER Height 165.1 cm (5' 5) 07/05/2024 9:39 AM MATERIALS PLANNING MANAGER Body Mass Index 30.45 07/05/2024 9:39 AM MATERIALS PLANNING MANAGER Plan of Treatment Not on file Procedures Procedure Name Priority Date/Time Associated Diagnosis Comments DIAGNOSTIC MAMMOGRAM BILATERAL W MINA Schedule Routine, Read Routine (OP Routine) 07/11/2024 2:28 PM MATERIALS PLANNING MANAGER Nipple discharge Mass of axillary tail of right breast STOOL DNA COLOGUARD Routine 07/29/2023 8:45 AM CDT Colon cancer screening DEXA AXIAL SKELETON BONE DENSITY 1 OR MORE SITES Schedule Routine, Read Routine (OP Routine) 11/12/2021 9:34 AM CDT Menopausal and perimenopausal disorder HEPATITIS C AB W/REFL TO HCV RNA, QN, PCR (REFL) Routine 04/22/2019 12:14 PM MATERIALS PLANNING MANAGER Routine general medical examination at a health care facility COLONOSCOPY Routine 04/22/2008 from Last 3 Months or Most Recently Relevant to Health Maintenance Results * Diagnostic Mammogram Bilateral W Mina (07/11/2024 2:28 PM MATERIALS PLANNING MANAGER) Anatomical Region Laterality Modality Breast Bilateral Mammography 07/11/2024 3:05 PM MATERIALS PLANNING MANAGER Impressions 07/11/2024 3:05 PM MATERIALS PLANNING MANAGER Overall final assessment: BI-RADS Category 2: Benign No mammographic or sonographic evidence of malignancy. Electronically signed by: Rena Otto M.D. Narrative 07/11/2024 3:05 PM MATERIALS PLANNING MANAGER EXAM: Bilateral 3-D tomosynthesis diagnostic mammogram, limited [...] CDT) Stool DNA - Cologuard Negative Negative [facility] (CLIA #:[id number]) Comment: NEGATIVE TEST RESULT. A negative Cologuard [...] (Jass Melo al, N Engl J Med 2014;370(14):9361-5215) The normal value (reference range) for this assay is negative. COLOGUARD RE-SCREENING RECOMMENDATION: Periodic colorectal cancer screening is an important part of preventive healthcare for asymptomatic individuals at average risk for colorectal cancer. Following a negative Cologuard result, the [place] [employer] Society and U.S. Multi-Society Task Force screening guidelines recommend a Cologuard re-screening interval of 3 years. References: [place] [employer] Guideline for Colorectal Cancer Screening: https://www.cancer.org/cancer/czqkb-qaqvhf-rgjyzx/pmvpvhqaa-aayismkba-qeucmae/ac s-rec ommendations.html.; Titi DK, Tulio CR, Jack BarreraK, Colorectal Cancer Screening: Recommendations for Physicians and Patients from the U.S. Multi-Society Task Force on Colorectal Cancer Screening , Am J Gastroenterology 2017; 112:8237-3657. TEST DESCRIPTION: Composite algorithmic analysis of stool [...] (Jass Melo al, N Engl J Med 2014;370(14):8120-1759.) Cologuard may produce a false negative or false positive result (no colorectal cancer or precancerous polyp present at colonoscopy follow up). A negative Cologuard test result does not guarantee the absence of CRC or advanced adenoma (pre-cancer). The current Cologuard screening interval is every 3 years. ([place] [employer] Society and U.S. Multi-Society Task Force). Cologuard performance data in a 10,000 patient pivotal study using colonoscopy as the reference method can be accessed at the following location: www.Cashflowtuna.com.ClickScanShare/results. Additional description of the Cologuard test process, warnings and precautions can be found at www.[employer]agility.ClickScanShare. Stool 07/29/2023 8:45 AM CDT 07/30/2023 8:22 AM CDT us Pop Chase MD LAB BODY FLUIDS AND STOOLS ORDERABLES Final Result [facility] (CLIA #:[id number]) [address] [place] [address] * Dexa Axial Skeleton Bone Density 1 [...] it. Electronically signed by: Shirley Cardoso M.D. us Martin Givens MD IMG DXA PROCEDURES Final R esult * HEPATITIS C AB W/REFL TO HCV RNA, QN, PCR (REFL) (04/22/2019 12:14 PM MATERIALS PLANNING MANAGER) Hep C Ab NON-REACT KIM NON-REACT [facility] [place] Comment: Our records indicate that you have ordered a client custom reflex order code. Only the initial test was performed because we do not have a client custom reflex testing authorization request form on file for you. Please contact a client delivery manager if you would like additional testing done on this patient or contact your direct sales professional to obtain a client custom reflex testing authorization request form. SIGNAL TO CUT-OFF 0.01 <1.00 [facility] [place] Comment: HCV antibody was non-reactive. There is no laboratory evidence of HCV infection. In most cases, no further action is required. However, if recent HCV exposure is suspected, a test for HCV RNA (test code 86290) is suggested. For additional information please refer to http://education.linkedFA.ClickScanShare/faq/HFJ84h5 (This link is being provided for informational/ educational purposes only.) BLD 04/22/2019 12:1 4 PM MATERIALS PLANNING MANAGER 04/23/2019 6:19 AM MATERIALS PLANNING MANAGER Narrative Resulting Agency Comment Performing Organization Information: Site ID: [id number] Name: [facility] Address: [address] [address] Director: Markel Pope D.O., MPH Alexys Weiss MD LAB BLOOD ORDERABLES Final Res ult [facility] [place] * COLONOSCOPY (04/22/2008) Colonoscopy Normal Historical Provider HEALTH MAINTENANCE Final Result from Last 3 Months or Most Recently Relevant to Health Maintenance Insurance [facility] [place] MED[place] [employer] [employer] [place] P[place] Advance Directives For more information, please contact: [phone] * Full Code (Latest Code Status on File) Date Activated Date Inactivated Comments 03/11/2022 9:41 AM 03/11/2022 2:25 PM Care Teams Sagger Maker Relationship Specialty Start Date End Date Pop Chase MD PCP - General Internal Medicine 01/01/22 Carmelita Frazier MD [address] [place] [address] Consulting Physician Obstetrics and Gynecology 03/11/22
[2024-11-08 14:48] LABS: Add Urine Microscopic? YES; Appearance Urine Clear (Clear); Glucose Urine UA Negative (Negative); Leukocyte Esterase Ur Trace LEU/UL (Negative); Nitrate Urine Negative (Negative); Non Pathogenic Casts 0-2; Specific Grav Ur 1.022 (1.001-1.035)
[2024-11-08] MEDS: CIPROFLOXACIN 500 MG TAB PO (16:43)
== END 2024-11-08 16:47 | disposition home or self-care (01) ==
PROVIDERS: Emergency Provider Physician Assistant; PCP Internal Medicine
DX: K57.32 Diverticulitis of large intestine without perforation or abscess without bleeding (principal)
CPT/HCPCS: 36415; 74176; 80053; 81001; 83605; 83690; 85025; 99284; A9270

== ENCOUNTER 2025-04-12 18:07 | Emergency (ER) | payer OTHER, SELFPAY ==
[2025-04-12 18:20] VITALS: BP 144/70; PULSE 90; RESP 16; TEMP 36.9; O2SAT 98
--- NOTE | 2025-04-12 18:59 | ED.WOUNDLAC ---
HPI - Wound/Laceration General Chief Complaint: Wound/Laceration Stated Complaint: L 3rd digit Time Seen by Provider: 04/12/25 18:38 History of Present Illness HPI narrative: Patient is a 69-year-old female who presents to the ER after sustaining a laceration to her left middle digit. She reports she was slicing food when she cut through her finger. Patient reports she is unsure when she last had her tetanus vaccine. She denies any pertinent medical history relevant to this ER visit. Patient denies any numbness and tingling to the site, excessive swelling, or decreased range of motion. Related Data Allergies Allergy/AdvReac Type Severity Reaction Status Date / Time erythromycin base Allergy Nausea and Verified 11/08/24 11:37 Vomiting Review of Systems Review of Systems: All systems reviewed & are unremarkable except as noted in HPI and below Exam Narrative: GENERAL: Well appearing, well-nourished, non-toxic, in no acute distress. HEAD: Normocephalic, atraumatic. NECK: Supple. No adenopathy, no masses. RESPIRATORY: Airway patent, respirations nonlabored. Clear to auscultation bilaterally, no rales, rhonchi, wheezing. CARDIOVASCULAR: Regular rate and rhythm without murmurs, rubs, or gallops. Peripheral pulses 2+ and equal bilaterally. ABDOMINAL: Soft, nontender, nondistended, no hepatosplenomegaly. Normoactive BS. MUSCULOSKELETAL: Moves all extremities. Strength/ROM intact without gross deformities. SKIN: Warm, dry, normal color. No rashes. Left 3rd digit avulsion, continued oozing. No visible bone or tendons exposed. NEURO: A&O X3. Speech clear. Cranial nerves II-XII intact. No ataxic movements. PSYCHIATRIC: Appropriate mood and affect. Normal interaction. Course Vital Signs Vital signs: Vital Signs Temperature 36.9 C 04/12/25 18:20 Pulse Rate 90 04/12/25 18:20 Respiratory Rate 16 04/12/25 18:20 Blood Pressure 144/70 H 04/12/25 18:20 Pulse Oximetry 98 04/12/25 18:20 Oxygen Delivery Room Air 04/12/25 18:20 Temperature 36.9 C 04/12/25 18:20 Pulse Rate 90 04/12/25 18:20 Respiratory Rate 16 04/12/25 18:20 Blood Pressure 144/70 H 04/12/25 18:20 Pulse Oximetry 98 04/12/25 18:20 Oxygen Delivery Room Air 04/12/25 18:20 MDM MDM Narrative Medical decision making narrative: Patient is a 69-year-old female who presents to the ER after sustaining a laceration to her left middle digit. She reports she was slicing food when she cut through her finger. Patient reports she is unsure when she last had her tetanus vaccine. She denies any pertinent medical history relevant to this ER visit. Patient denies any numbness and tingling to the site, excessive swelling, or decreased range of motion. Labs Ordered: Imaging Ordered: None necessary Medications Ordered: Tdap IM, TXA topical, Benadryl 50 mg p.o., Surgicel topical, Tylenol #3 (per pt's request) Diagnosis: L third digit avulsion 1999-patient believes she is having a reaction to the Tylenol #3. She reports she has had this medication before and never had a reaction. Patient reports her chest feels heavy. She recovered nicely after drinking some apple juice. Patient Education/Shared MDM: Patient endorses improvement of symptoms following medication administration. Bleeding to site subsided prior to TXA administration. Site was covered with Surgicel and patient 3rd digit was placed in a splint. Patient strongly advised to follow-up with her PCP in 2-3 days to ensure she is healing. She will be discharged home with a prescription for Keflex x 7 days. Strict return precautions provided. Patient verbalized understanding and is in agreement with plan. Vital signs stable at time of discharge. All questions answered. Differential Diagnosis Differential Diagnosis: Left finger avulsion, left finger laceration, uncontrolled bleeding Discharge Plan Discharge Clinical Impression: Avulsion of skin Patient Disposition: Home Condition: Stable Instructions: Antibiotic Form, Skin Avulsion (ED) Additional Instructions: Please return to the ER with any worsening symptoms. Follow-up with primary care provider in 2-3 days to ensure your healing. Take all medications as prescribed, including regularly scheduled medications. You may take Tylenol and/or ibuprofen as needed for pain control. Please keep your splint on until you follow-up with your primary care provider. Patient Language: Citizen Of [place] Prescriptions: New cephalexin 500 mg capsule 500 mg PO Q8H 7 Days Qty: 21 0RF No Action metronidazole 500 mg tablet 500 mg PO Q8H 7 Days Qty: 21 0RF ciprofloxacin HCl 500 mg tablet 500 mg PO Q12H 7 Days Qty: 14 0RF hydrocodone-acetaminophen 5-325 mg tablet 1 tablet PO Q6H PRN (Reason: pain) Qty: 10 0RF Follow-up/Referrals: Salvatore,Festus Aguero MD [Primary Care Provider] Time of Disposition: 20:22
[2025-04-12] MEDS: ACETAMINOPHEN/CODEINE (*CRX) 300/30 MG TABLET 1 TAB PO (19:11)
[2025-04-12] MEDS: TETANUS,DIPHTHERIA,AC PERTUSSIS ADULT (0.5 ML) BOOSTRIX IM (20:14)
[2025-04-12] MEDS: CELLULOSE OXIDIZED 2 x 3 INCH 1 PKT XX (20:15)
[2025-04-12 21:03] VITALS: BP 138/72; PULSE 75; RESP 19; TEMP 36.4; O2SAT 98
== END 2025-04-12 21:05 | disposition home or self-care (01) ==
PROVIDERS: Emergency Provider Registered Nurse; PCP Internal Medicine
DX: S61.213A Laceration without foreign body of left middle finger without damage to nail, initial encounter (principal); W26.0XXA Contact with knife, initial encounter; Z23 Encounter for immunization
CPT/HCPCS: 90471; 90715; 99283; A9270